=== PATIENT | male | born 1995 | race American Indian/Alaskan Native ===

== ENCOUNTER 2019-03-09 15:40 | Emergency (ER) | payer SELFPAY ==
[2019-03-09 15:50] VITALS: BP 139/62
--- NOTE | 2019-03-09 15:50 | Emergency Department Report ---
Chief Complaint: Urogenital-Male Stated Complaint: HEALTH CHECKUP Time Seen by Provider: 03/09/19 15:46 - HPI History of Present Illness: This is a 23-year-old male nontoxic, well in appearance with no signs of distress presents to the ED for STD check. Patient stated that he just wants to be tested. Patient stated he is asymptotic. Denies any penile discharge, testicular pain, or swelling. Patient denies any urinary symptoms. Patient denies any fever, chills, headache, nausea, vomiting, chest pain or shortness of breathe. denies any other symptoms or complaints. Denies any allergies or PMH. - Exam Physical Exam: no abdominal pain. no back pain. no urinary symptoms. No discharge. Normal exam. MSE screening note: Focused history and physical exam performed. Due to findings the following was ordered: ED Medical Decision Making - Medical Decision Making This is a 23-year-old male that presents with nonmedical emergency complaint. Patient is just requested for a STD test. Patient denies any symptoms. I gave patient many different referrals to follow-up with STD concerns. Patient was instructed to Follow-up with a primary care doctor in 3-5 days or if symptoms worsen and continue return to emergency room as soon as possible. At time of discharge, the patient does not seem toxic or ill in appearance. No acute signs of distress noted. Patient agrees to discharge treatment plan of care. No further questions noted by the patient. ED Disposition for MSE Clinical Impression: Possible exposure to STD Disposition: Z-07 MED SCREENING EXAM-LEFT Is pt being admited?: No Does the pt Need Aspirin: No Condition: Stable Additional Instructions: Follow-up with a primary care doctor in 3-5 days or if symptoms worsen and continue return to emergency room as soon as possible. Referrals: JOHNATHAN TYSON MD [Referring] - 3-5 Days WAI OLIVIA MD [Staff Physician] - 3-5 Days [facility] [Outside] - 3-5 Days [facility] [Outside] - 3-5 Days
== END 2019-03-09 15:50 | disposition left against medical advice (07) ==
LOC: ED 15:40
DX: Z11.3 Encounter for screening for infections with a predominantly sexual mode of transmission (principal)
CPT/HCPCS: 99281